=== PATIENT | female | born 1955 | race Caucasian/White ===

== ENCOUNTER → 2016-07-27 | Outpatient (CLI) | payer OTHER ==
[~2016-07-27] MED LIST: ACIPHEX20 MG PO; ADVAIR 250/501 DISK IH; AMLODIPINE BESYL5 MG PO; AZITHROMYCIN250 MG1 PO; Advair HFA 115/21 IH; BONIVA3 MG/3 ML IV; CELLCEPT500 MG PO; CHEWABLE-VITE1 EACH PO; COMPAZINE10 MG PO; DAPSONE100 MG PO; DEMEROL50 MG PO; DIAZEPAM10 MG PO; DILAUDID2 MG PO; DILAUDID4 MG PO; DOMPERIDONE PO; DUONEB3 ML IH; FLORINEF ACETA0.1 MG PO; FOLIC ACID0.4 MG PO; FOLIC ACID1 MG PO; GABAPENTIN300 MG PO; Habitrol,Nicoderm CQ TD; LASIX20 MG PO; LEVAQUIN500 MG PO; LORAZEPAM1 MG PO; Levaquin PO; MAGOX 400400 MG PO; METOCLOPRAMIDE10 MG PO; MULTIVITAMIN1 EAC2 PO; NASACORT AQ16.5 GM NS; NEURONTIN300 MG PO; NORVASC5 MG PO; NOVOLOG 10100 UNITS/ SC; PRAVACHOL20 MG PO; PRAVASTATIN SOD20 MG PO; PREDISONE PO; PREDNISONE PO; PREDNISONE5 MG PO; PROGRAF1 MG PO; PROTONIX40 MG PO; PROVENTIL HFA6.7 GM IH; RANITIDINE HCL150 MG PO; REGLAN5 MG PO; REMERON15 M2 PO; REMERON15 MG PO; Remeron PO; SEROQUEL100 MG PO; SEROQUEL12.5 MG PO; SERTRALINE HCL100 MG PO; SINGULAIR10 MG PO; SOMA350 MG PO; SPIRIVA1 INHALATI; SPIRIVA1 INHALATI IH; SPORANOX100 MG PO; Singulair PO; Soma PO; TACROLIMUS ANH0.5 MG PO; TACROLIMUS ANHYD1 MG PO; THEODUR PO; Tylenol Regular Stre PO; VALCYTE450 MG PO; VALIUM10 MG PO; VITAMIN D2000 UNIT PO; VITAMIN D31000 UNIT PO; Valium PO; ZOFRAN4 MG PO; ZOLOFT100 M1 PO; ZOLOFT100 MG PO; Zoloft PO; [UNRECOGNIZED DRUG - OTHER] IH
== END | disposition home or self-care (01) ==
LOC: RES 07-16 14:00
DX: Z94.2 Lung transplant status (principal)
CPT/HCPCS: 94010

== ENCOUNTER → 2016-08-27 | Outpatient (CLI) | payer OTHER | END | disposition home or self-care (01) | LOC: RES 13:54 | DX: Z94.2 Lung transplant status (principal); D89.9 Disorder involving the immune mechanism, unspecified | CPT/HCPCS: 94010 ==

== ENCOUNTER → 2016-11-26 | Outpatient (CLI) | payer OTHER | END | disposition home or self-care (01) | LOC: RES 14:00 | DX: Z94.2 Lung transplant status (principal); D89.9 Disorder involving the immune mechanism, unspecified ==

== ENCOUNTER 2017-03-13 15:35 | Observation (INO) | payer OTHER ==
[~2017-03-13] VITALS: Ht 172.7 cm; Wt 72.3 kg
[~2017-03-13 15:35] MED LIST changes: -FOLIC ACID0.4 MG PO; +FOLIC ACID0.8 MG PO; +MAGNESIUM OXID500 MG PO; -VITAMIN D31000 UNIT PO; +VITAMIN D32000 UNI1 PO
[2017-03-13 16:36] LABS: HEMATOCRIT 35.5 % (36.0-46.0); MCH 30.5 PG (29.0-34.0); MCHC 34.1 G/DL (30.0-36.0); MCV 89.4 FL (83-99); MEAN PLAT.VOLUME 9.8 uM^3 (9.5-12.4); PLATELET COUNT 115 K/uL (156-360); RBC DIS.WIDTH-CV 11.9 % (11.8-14.6); RBC DIS.WIDTH-SD 38.6 % (39-53); RED BLOOD COUNT 3.97 M/uL (3.80-5.20); WHITE BLOOD COUNT 9.5 K/uL (4.1-10.2)
[2017-03-13 16:46] LABS: CHLORIDE 100 mEq/L (99-109); POTASSIUM 3.6 mEq/L (3.7-5.4); SODIUM 134 mEq/L (136-147)
[2017-03-13 16:48] LABS: GLUCOSE 102 mg/dL (70-99)
[2017-03-13 16:49] LABS: ANION GAP 12 MEQ/L (2-14)
[2017-03-13 16:50] LABS: TOTAL BILIRUBIN 0.9 mg/dL (0.0-1.0)
[2017-03-13 16:52] LABS: ALKALINE PHOSPHATASE 71 IU/L (3-129); GFR ESTIMATE (CALCULATED) 54 mL/min/
[2017-03-13 16:53] LABS: UREA NITROGEN (BUN) 15 mg/dL (9-23)
[2017-03-13 18:34] LABS: ADD MIUA? YES; BILIRUBIN NEGATIVE; BLOOD MODERATE; COLOR YELLOW ((YELLOW)); GLUCOSE (STRIP) NEGATIVE; KETONES 5; LEUKOCYTES NEGATIVE; NITRITE NEGATIVE; PROTEIN (STRIP) NEGATIVE; SPECIFIC GRAVITY 1.006 (1.000-1.030); UROBILINOGEN 0.2 MG/DL (0.2-1.0)
[2017-03-13 18:49] LABS: BACTERIA NONE SEEN /HPF; EPITHELIAL CELLS NONE SEEN /HPF; MUCUS NONE SEEN /LPF; RED BLOOD CELLS 0-5 /HPF (0-5); UCUL ADDED? NO; WHITE BLOOD CELLS 0-5 /HPF (0-5)
[2017-03-13 21:52] LABS: INFLUENZA A VIRAL ANTIGEN NEGATIVE; INFLUENZA B VIRAL ANTIGEN NEGATIVE
[2017-03-13] MEDS ORDERED: ZOFRAN4 MG PO ×2 (22:21→23:10)
[2017-03-13] MEDS ORDERED: DILAUDID2 MG PO (23:09)
[2017-03-13] MEDS ORDERED: AMLODIPINE BESYL5 MG PO (23:09)
[2017-03-13] MEDS ORDERED: ASPIR 8181 M1 PO (23:12)
[2017-03-13] MEDS ORDERED: FOSAMAX70 MG PO (23:13)
[2017-03-14 01:00] VITALS: BP 144/58
[2017-03-14 07:20] VITALS: BP 123/56
[2017-03-14] MEDS ORDERED: ZOFRAN4 MG PO (12:21)
[2017-03-14 15:25] VITALS: BP 136/63
== END 2017-03-14 18:02 | disposition home or self-care (01) ==
LOC: EME 15:35 → 5EAST 23:21 → EDOF 23:21 → ENRESERV 23:36 → ENPENDDIS 03-14 → EDOF 03-14 01:18 → ENRESERV 03-14 01:21 → 5EAST 03-14 01:23
PROVIDERS: Emergency Medicine
DX: A08.4 Viral intestinal infection, unspecified (principal); Z94.2 Lung transplant status; J44.9 Chronic obstructive pulmonary disease, unspecified; E83.119 Hemochromatosis, unspecified; M19.90 Unspecified osteoarthritis, unspecified site; F41.8 Other specified anxiety disorders; Z87.891 Personal history of nicotine dependence; Z82.5 Family history of asthma and other chronic lower respiratory diseases; Z88.0 Allergy status to penicillin; Z86.718 Personal history of other venous thrombosis and embolism; K21.9 Gastro-esophageal reflux disease without esophagitis
CPT/HCPCS: 71010; 71250; 74176; 80053; 80197 90; 81003; 83605; 83690; 85027; 87040; 87502; 99202; 99281; 99285; G0378; J1956; J2405; J7030; J7507; J7512

== ENCOUNTER → 2017-06-26 | Outpatient (CLI) | payer OTHER ==
[~2017-06-26] MED LIST changes: +ASPIR 8181 M1 PO; +FOSAMAX70 MG PO
== END | disposition home or self-care (01) ==
LOC: RES 14:00
DX: Z94.2 Lung transplant status (principal); D89.9 Disorder involving the immune mechanism, unspecified
CPT/HCPCS: 94010

== ENCOUNTER → 2017-08-21 | Outpatient (CLI) | payer OTHER | END | disposition home or self-care (01) | LOC: RES 13:55 | DX: D89.9 Disorder involving the immune mechanism, unspecified (principal); Z94.2 Lung transplant status | CPT/HCPCS: 94010 ==

== ENCOUNTER → 2017-09-18 | Outpatient (CLI) | payer OTHER | END | disposition home or self-care (01) | LOC: RES 13:54 | DX: Z94.2 Lung transplant status (principal); D89.9 Disorder involving the immune mechanism, unspecified | CPT/HCPCS: 94010 ==

== ENCOUNTER → 2017-10-16 | Outpatient (CLI) | payer OTHER | END | disposition home or self-care (01) | LOC: RES 14:00 | DX: Z94.2 Lung transplant status (principal); D89.9 Disorder involving the immune mechanism, unspecified | CPT/HCPCS: 94010 ==

== ENCOUNTER → 2017-12-16 | Outpatient (CLI) | payer OTHER | END | disposition home or self-care (01) | LOC: RES 11-20 14:00 | DX: Z79.4 Long term (current) use of insulin (principal); D89.9 Disorder involving the immune mechanism, unspecified | CPT/HCPCS: 94010 ==

== ENCOUNTER → 2018-01-24 | Outpatient (CLI) | payer OTHER | END | disposition home or self-care (01) | LOC: RES 13:51 | DX: Z94.2 Lung transplant status (principal); D89.9 Disorder involving the immune mechanism, unspecified | CPT/HCPCS: 94010 ==